=== PATIENT | female | born 1960 | race Hispanic/Latino ===

== ENCOUNTER 2017-07-10 07:34 | Emergency (ER) | payer OTHER ==
[2017-07-10 07:38] VITALS: TEMP 97
[2017-07-10 07:39] VITALS: BMI 27.4
--- NOTE | 2017-07-10 08:21 | ED PDOC ---
Upper Extremity Pain/Injury Time Seen by Provider: 07/10/17 07:42 Chief Complaint (Nursing): Upper Extremity Problem/Injury Chief Complaint (Provider): Upper extremity problem History Per: Patient History/Exam Limitations: no limitations Onset/Duration Of Symptoms: Days (x1 week), Worse Since (x2 days) Current Symptoms Are (Timing): Still Present Quality: Aching Exacerbating Factor(s): Movement Additional Complaint(s): Sherin Camacho is a 56 year old female, with a past medical history of bronchitis , who presents to the emergency department complaining of left shoulder blade pain onset for 1 week. Patient reports she didn't have any major trauma but thinks she strained it after heavy lifting. Symptoms worsen 2 days ago after she was heavy lifting again. Patient state pain began radiating from shoulder blade to left shoulder and arm. She has difficulty moving the arm secondary to pain. She took an advil at 5am this morning but with no relief. She reports a subjective fever 4 days ago but is currently afebrile. Patient denies any chest pain, shortness of breath, cough, vomit, nausea, diarrhea, sore throat and ear pain. PMD: None provided. Past Medical History Reviewed: Historical Data, Nursing Documentation, Vital Signs Vital Signs: Last Vital Signs Temp 97 F L 07/10/17 07:38 Pulse 71 07/10/17 07:38 Resp BP 149/91 H 07/10/17 07:38 Pulse Ox 100 07/10/17 07:38 - Medical History PMH: Bronchitis (1 week ago- took Z-Pac) Denies: HIV, Chronic Kidney Disease - Surgical History Surgical History: Cholecystectomy, Other surgeries: Right shoulder tear - Family History Family History: States: Unknown Family Hx, CAD - Social History Current smoker - smoking cessation education provided: Yes (Smokes some days but uses nicotine patches) Alcohol: None Drugs: Denies - Immunization History Hx Tetanus Toxoid Vaccination: No Hx Influenza Vaccination: No Hx Pneumococcal Vaccination: No - Home Medications Home Medications: Ambulatory Orders Medication Instructions Recorded Cyclobenzaprine [Cyclobenzaprine 10 mg PO BID PRN #10 tab 07/10/17 HCl] - Allergies Allergies/Adverse Reactions: Allergies Allergy/AdvReac Type Severity Reaction Status Date / Time No Known Allergies Allergy Verified 07/10/17 07:42 Review of Systems ROS Statement: Except As Marked, All Systems Reviewed And Found Negative Constitutional: Negative for: Fever ENT: Negative for: Ear Pain, Throat Pain Cardiovascular: Negative for: Chest Pain Respiratory: Negative for: Cough, Shortness of Breath Gastrointestinal: Negative for: Nausea, Vomiting, Diarrhea Musculoskeletal: Positive for: Shoulder Pain (radiating from left shoulder blade to left arm) Physical Exam - Reviewed Nursing Documentation Reviewed: Yes Vital Signs Reviewed: Yes - Physical Exam Appears: Positive for: Well, Non-toxic, No Acute Distress Head Exam: Positive for: ATRAUMATIC, NORMAL INSPECTION, NORMOCEPHALIC Skin: Positive for: Normal Color, Warm, Dry Eye Exam: Positive for: Normal appearance Neck: Positive for: Normal, Painless ROM, Supple Cardiovascular/Chest: Positive for: Regular Rate, Rhythm Respiratory: Positive for: Normal Breath Sounds. Negative for: Respiratory Distress Gastrointestinal/Abdominal: Positive for: Normal Exam, Bowel Sounds, Soft. Negative for: Tenderness Back: Positive for: Normal Inspection Extremity: Positive for: Tenderness (left shoulder tender to palpation, however no bony step-off), Other (neurovascular intact). Negative for: Normal ROM ( Difficulty moving left upper extremities secondary to pain), Swelling (left shoulder blade) Neurologic/Psych: Positive for: Alert, Oriented. Negative for: Motor/Sensory Deficits - ECG O2 Sat by Pulse Oximetry: 100 (RA) Pulse Ox Interpretation: Normal Medical Decision Making Medical Decision Making: Initial Impression: Left shoulder pain likely muscular Initial Plan: --Chest two views (PA/LAT) [RAD] --Flexeril 10 mg PO --Toradol 60 mg IM --Shoulder left [RAD] --reevaluation pt feels better with medications cxr and shoulder xrs appear neg for fracture pt referred to outpt orthopedist and given rx flexeril Scribe Attestation: Documented by Henry Jiang, acting as a scribe for River Hernandez MD Provider Scribe Attestation: All medical record entries made by the Scribe were at my direction and personally dictated by me. I have reviewed the chart and agree that the record accurately reflects my personal performance of the history, physical exam, medical decision making, and the department course for this patient. I have also personally directed, reviewed, and agree with the discharge instructions and disposition. Disposition - Clinical Impression Clinical Impression: Muscular pain, Shoulder pain - Patient ED Disposition Is Patient to be Admitted: No Counseled Patient/Family Regarding: Studies Performed, Diagnosis, Need For Followup - Disposition Referrals: [facility] [Outside] Carley Barreto MD [Staff Provider] - Disposition: Routine/Home Disposition Time: 09:00 Condition: IMPROVED Additional Instructions: follow up with your primary doctor/orthopedist for further evaluation/treatment return to the ED with any worsening or concerning symptoms Prescriptions: Cyclobenzaprine [Cyclobenzaprine HCl] 10 mg PO BID PRN #10 tab PRN Reason: Pain, Moderate (4-7) Instructions: Shoulder Sprain (ED), Shoulder Pain (ED) Forms: [facility] (Faroese), [facility] ED School/Work Excuse
[2017-07-10 11:16] VITALS: BP 136/84; PULSE 74; RESP 18
--- NOTE | 2017-07-10 11:36 | RAD ---
HISTORY: left shoulder pain COMPARISON: Chest radiographs 08/13/2015 TECHNIQUE: Chest PA and lateral FINDINGS: LUNGS: No active pulmonary disease. PLEURA: No significant pleural effusion identified. No pneumothorax apparent. CARDIOVASCULAR: Normal. OSSEOUS STRUCTURES: No significant abnormalities. VISUALIZED UPPER ABDOMEN: Normal. OTHER FINDINGS: None. IMPRESSION: No acute cardiopulmonary is or significant interval change compared to 08/13/2015.
--- NOTE | 2017-07-10 11:40 | RAD ---
PROCEDURE: Radiographs of the Left Shoulder HISTORY: shoulder pain COMPARISON: No prior. FINDINGS: BONES: Normal. No fracture. No suspicious lytic or blastic changes identified. JOINTS: Moderate degenerative osteophyte development seen at the acromioclavicular joint with local soft tissue calcifications suggestive of degenerative ligamentous change calcification immediately cephalad, possibly separate from the greater tuberosity may indicate calcific tendinosis. The glenohumeral joint appears grossly nonfocal. SOFT TISSUES: See section immediately above. OTHER FINDINGS: None. 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 No acute fracture or dislocation. Degenerative acromioclavicular joint changes appear moderate.
[2017-07-10 15:26] VITALS: O2SAT 100
== END 2017-07-10 10:20 | disposition home or self-care (01) ==
LOC: H.ER 07:34
DX: M25.512 Pain in left shoulder (principal); M79.1 Myalgia
CPT/HCPCS: 71020; 73030; 96372; 99282; J1885